=== PATIENT | male | born 1945 | race Two or more races ===

== ENCOUNTER 2022-02-21 06:28 | Day surgery (SDC) | payer OTHER | END 2022-02-21 12:20 | disposition home or self-care (01) | LOC: AMB-ENDOS 06:28 | PROVIDERS: ATTEND Surgery | DX: D12.7 Benign neoplasm of rectosigmoid junction (principal); D12.4 Benign neoplasm of descending colon; Z86.010 Personal history of colon polyps; E11.9 Type 2 diabetes mellitus without complications; Z79.84 Long term (current) use of oral hypoglycemic drugs ==